=== PATIENT | female | born 1970 | race Caucasian/White ===

== ENCOUNTER → 2023-08-21 11:18 | Outpatient (REF) | payer BC, SELFPAY | LOC: HWRAD 11:18 | PROVIDERS: ATTENDING PHYSICIAN Nurse Practitioner Adult Health | DX: J06.9 Acute upper respiratory infection, unspecified (principal) | CPT/HCPCS: 71046; 71110 ==

== ENCOUNTER → 2023-09-11 15:57 | Outpatient (REF) | payer BC, SELFPAY | LOC: HWRAD 15:57 | PROVIDERS: ATTENDING PHYSICIAN Physician Assistant Medical | DX: M35.3 Polymyalgia rheumatica (principal) | CPT/HCPCS: 72220 ==

== ENCOUNTER → 2023-09-22 12:31 | Outpatient (REF) | payer BC, SELFPAY | LOC: HWRAD 12:31 | PROVIDERS: ATTENDING PHYSICIAN Physician Assistant Medical | DX: Z13.820 Encounter for screening for osteoporosis (principal) | CPT/HCPCS: 77080 ==

== ENCOUNTER → 2023-12-16 07:26 | Outpatient (REF) | payer BC, SELFPAY | LOC: HWRAD 07:26 | PROVIDERS: ATTENDING PHYSICIAN Physician Assistant Medical | DX: R22.41 Localized swelling, mass and lump, right lower limb (principal) | CPT/HCPCS: 71046; 76882 ==

== ENCOUNTER → 2024-05-17 17:35 | Outpatient (REF) | payer BC, SELFPAY | LOC: WDC 17:35 | PROVIDERS: FAMILY PHYSICIAN Physician Assistant Medical | DX: Z12.31 Encounter for screening mammogram for malignant neoplasm of breast (principal) | CPT/HCPCS: 77063; 77067 ==

== ENCOUNTER → 2024-09-14 10:29 | Outpatient (REF) | payer BC, SELFPAY | LOC: HWRAD 10:29 | PROVIDERS: ATTENDING PHYSICIAN Physician Assistant Medical | DX: R05.9 Cough, unspecified (principal) | CPT/HCPCS: 71046 ==

== ENCOUNTER → 2024-09-19 16:57 | Outpatient (REF) | payer BC, SELFPAY | LOC: RAD 16:57 | PROVIDERS: ATTENDING PHYSICIAN Physician Assistant Medical; FAMILY PHYSICIAN Physician Assistant Medical | DX: R05.9 Cough, unspecified (principal); R93.89 Abnormal findings on diagnostic imaging of other specified body structures | CPT/HCPCS: 71250 ==